=== PATIENT | female | born 1995 | race Caucasian/White ===

== ENCOUNTER 2018-06-12 18:57 | Emergency (ER) | payer MEDICAID ==
--- NOTE | 2018-06-12 19:19 | EDM.PDOC ---
ED HPI GENERAL MEDICAL PROBLEM - General Stated Complaint: POSSIBLE ALLERGIC REACTION Time Seen by Provider: 06/12/18 19:19 Source of Information: Reports: Patient, Family History Limitations: Reports: No Limitations - History of Present Illness INITIAL COMMENTS - FREE TEXT/NARRATIVE: The patient has had it a couple ferrets to her family. This was about a month ago. The patient is having a allergic reaction. This is periorbital. She is not sure if this is coming from the ferrets. No fever no chills. No difficulty breathing. She has been using a topical cream that is gluten-free. At any rate I did have the patient take a shot of Solu-Medrol 125 mg. Im. I also gave her some Pepcid. Benadryl would also be an option. I also gave her steroids. She is to return if she has any further issues did talk to her about the risk of a secondary staph infection. Patient does have a complicated medical history. She is accompanied by her mom and sister. She has also had sinus issues in the past. Onset: Gradual Duration: Getting Worse Location: Reports: Other (Face) Quality: Reports: Ache Severity: Moderate Improves with: Reports: None Associated Symptoms: Reports: Rash left eye/left side of face Pain Score (Numeric/FACES): 3 - Related Data Allergies Allergy/AdvReac Type Severity Reaction Status Date / Time bacitracin Allergy Rash Verified 06/12/18 20:21 [From Neosporin ([id number])] bacitracin zinc Allergy Rash Verified 06/12/18 20:21 [From Neosporin ([id number])] hydrocodone Allergy Itching Verified 06/12/18 20:21 neomycin sulfate Allergy Rash Verified 06/12/18 20:21 [From Neosporin ([id number])] polymyxin B Allergy Rash Verified 06/12/18 20:21 [From Neosporin ([id number])] Home Meds: Home Meds Norgestimate-Ethinyl Estradiol [Tri-Linyah] 1 tab PO DAILY 12/20/13 [History] Mirtazapine [Remeron] 15 mg PO BEDTIME 05/02/14 [History] predniSONE [Prednisone] 10 mg PO DAILY #20 tablet 06/12/18 [Rx] Past Medical History Neurological History: Reports: Other (See Below) Other Neuro History: left facial drooping from . - Past Surgical History HEENT Surgical History: Reports: Oral Surgery, Other (See Below) Social & Family History - Living Situation & Occupation Living situation: Reports: Single, with Family Occupation: Unemployed ED ROS GENERAL - Review of Systems Review Of Systems: ROS reveals no pertinent complaints other than HPI. ED EXAM, GENERAL - Physical Exam Exam: See Below Exam Limited By: No Limitations General Appearance: Alert, Mild Distress (The patient does have thickening of the eyelid on the left. Somewhat of a orange peel appearance. And also was some slight induration but no infection per se. Conjunctiva is otherwise clear. There is also some erythematous areas around her lips and around her left eye. No lymphadenopathy appreciated.) Throat/Mouth: Normal Inspection Head: Atraumatic Neck: Normal Inspection Respiratory/Chest: No Respiratory Distress, Lungs Clear, Normal Breath Sounds, No Accessory Muscle Use, Chest Non-Tender Cardiovascular: Normal Peripheral Pulses, Regular Rate, Rhythm, No Edema, No Gallop, No JVD, No Murmur, No Rub Course - Vital Signs Last Recorded V/S: Last Vital Signs Temp 36.9 C 06/12/18 19:10 Pulse 84 06/12/18 19:10 Resp 16 06/12/18 19:10 BP 149/88 H 06/12/18 19:10 Pulse Ox 100 06/12/18 19:10 - Orders/Labs/Meds Meds: Medications Discontinued Medications Generic Name Dose Route Start Last Admin Trade Name Freq PRN Reason Stop Dose Admin Famotidine 20 mg 06/12/18 19:41 06/12/18 19:44 Pepcid PO 06/12/18 19:42 20 mg ONETIME ONE Administration Methylprednisolone Sodium Succinate 125 mg 06/12/18 19:30 06/12/18 19:41 Solu-Medrol IM 06/12/18 19:31 125 mg ONETIME ONE Administration Prednisone 1 packet 06/12/18 19:38 06/12/18 19:44 Take Home: Prednisone 20 Mg, 2 Tab Pack PO 06/12/18 19:39 1 packet ONETIME ONE Administration Departure - Departure Time of Disposition: 20:24 Disposition: Home, Self-Care 01 Condition: Good Clinical Impression: Contact dermatitis Qualifiers: Contact dermatitis type: allergic Contact dermatitis trigger: unspecified trigger Qualified Code(s): L23.9 - Allergic contact dermatitis, unspecified cause - Discharge Information *PRESCRIPTION DRUG MONITORING PROGRAM REVIEWED*: Not Applicable Prescriptions: predniSONE [Prednisone] 10 mg PO DAILY #20 tablet Instructions: Allergic Conjunctivitis, Adult, [id number] Referrals: Ruba Peng PA-C [Primary Care Provider] - Forms: ED Department Discharge Additional Instructions: You received a dose of Solu-Medrol which is a steroid. This will hopefully help with the inflammation. I do want you to fill the prescription. Benadryl may help - 25-50 mg every 6 hours. This may cause sleepiness. Avoid rubbing the eyes. Pepcid would also help. Return if it seems to worsen. You may use a triple antibiotic ointment or another cream for the eye. Take the prednisone tomorrow. 1 tablet in the AM and 1 in the early PM. This may cause insomnia so try not to take this too late.
[2018-06-12] MEDS ORDERED: methylPREDNISolone Sodium Succinate 125 MG/2 ML SDV IM ONE (19:30)
[2018-06-12] MEDS ORDERED: Take Home: predniSONE 20 MG, 2 Tab Pack PO ONE (19:38)
[2018-06-12] MEDS ORDERED: Famotidine 20 MG Tab PO ONE (19:41)
== END 2018-06-12 19:54 | disposition home or self-care (01) ==
LOC: VM.ED 18:57
DX: L23.9 Allergic contact dermatitis, unspecified cause (principal); Z88.8 Allergy status to other drugs, medicaments and biological substances; Z88.5 Allergy status to narcotic agent; Z79.899 Other long term (current) drug therapy
CPT/HCPCS: 96372; 99283; A9270-GY; J2930

== ENCOUNTER 2022-05-08 08:05 | Day surgery (SDC) | payer MEDICAID ==
[2022-05-08] MEDS: Lactated Ringers 1,000 ML IV SCH (08:25)
[2022-05-08] MEDS ORDERED: fentaNYL 100 MCG/2 ML SDV ONE (09:20)
[2022-05-08] MEDS ORDERED: Propofol 200 MG/20 ML SDV ONE ×2 (09:20→11:33)
== END 2022-05-08 11:47 | disposition home or self-care (01) ==
LOC: VM.SDS 08:05
PROVIDERS: ATTEND Family Medicine
DX: Z12.11 Encounter for screening for malignant neoplasm of colon (principal); E66.9 Obesity, unspecified; F32.A Depression, unspecified; F41.9 Anxiety disorder, unspecified; G47.00 Insomnia, unspecified; Z98.890 Other specified postprocedural states; Z83.71 Family history of colonic polyps; Z87.19 Personal history of other diseases of the digestive system; Z79.899 Other long term (current) drug therapy; Z79.84 Long term (current) use of oral hypoglycemic drugs; Z87.891 Personal history of nicotine dependence; Z68.37 Body mass index [BMI] 37.0-37.9, adult; Z88.1 Allergy status to other antibiotic agents; Z88.5 Allergy status to narcotic agent
CPT/HCPCS: 45380; 81025; J2704; J3010; J7120; 00811

== ENCOUNTER 2023-05-10 11:39 | Emergency (ER) | payer MEDICAID ==
[2023-05-10] MEDS ORDERED: Sodium Chloride 0.9% 10 ML Syringe FLUSH PRN (11:58)
[2023-05-10] MEDS ORDERED: Lactated Ringers 1,000 ML IV ONE (11:59)
[2023-05-10] MEDS ORDERED: Ondansetron 4 MG/2 ML SDV IVPUSH ONE (11:59)
[2023-05-10] MEDS ORDERED: Morphine 4 MG/ML Syringe IVPUSH ONE (12:00)
[2023-05-10 12:05] LABS: BASOPHILS PERCENT AUTO 0.3 % (0.2-1.2); EOSINOPHILS ABSOLUTE AUTO 0.3 x10^3/uL (0.0-0.5); EOSINOPHILS PERCENT AUTO 2.5 % (0.0-4.0); HEMATOCRIT 42.9 % (33.0-47.0); HEMOGLOBIN 14.2 g/dL (12.0-16.0); IMMATURE GRAN ABSOLUTE AUTO 0.02 x10^3/uL (0.00-0.07); LYMPHOCYTES ABSOLUTE AUTO 2.1 x10^3/uL (1.0-4.8); LYMPHOCYTES PERCENT AUTO 18.7 % (25.0-50.0); MEAN CORPUSCULAR HEMOGLOBIN 30.4 pg (26.0-32.0); MEAN CORPUSCULAR HGB CONC 33.1 g/dL (32.0-36.0); MEAN CORPUSCULAR VOLUME 91.9 fL (78.0-93.0); MONOCYTES ABSOLUTE AUTO 0.7 x10^3/uL (0.0-0.8); MONOCYTES PERCENT AUTO 5.8 % (2.0-11.0); NEUTROPHILS ABSOLUTE AUTO 8.2 x10^3/uL (1.8-7.7); NEUTROPHILS PERCENT AUTO 72.5 % (50.0-80.0); PLATELET COUNT,PLT 321 x10^3/uL (130-400); RED BLOOD CELL COUNT 4.67 x10^6/uL (4.00-5.50); WHITE BLOOD CELL COUNT,WBC 11.3 x10^3/uL (4.0-10.0)
[2023-05-10 12:22] LABS: ALBUMIN 3.6 g/dL (3.4-5.0); ANION GAP 16.4 mmol/L (5-15); BILIRUBIN TOTAL 0.6 mg/dL (0.2-1.0); CALCIUM 8.4 mg/dL (8.5-10.1); CREATININE 0.8 mg/dL (0.55-1.02); EST CRCL DRUG DOSING (CG) 74.53 mL/min; POTASSIUM,K 3.4 mmol/L (3.5-5.1); PROTEIN TOTAL,TP 7.2 g/dL (6.4-8.2)
[2023-05-10 12:38] LABS: BILIRUBIN,URINE NEGATIVE (NEGATIVE); GLUCOSE,URINE NEGATIVE (NEGATIVE); KETONES,URINE NEGATIVE (NEGATIVE); LEUKOCYTE ESTERASE,URINE NEGATIVE (NEGATIVE); NITRITE,URINE NEGATIVE (NEGATIVE); OCCULT BLOOD,URINE LARGE (NEGATIVE); PROTEIN,URINE TRACE mg/dL (NEGATIVE); UROBILINOGEN,URINE 0.2 EU/dL (0.2)
[2023-05-10 12:45] LABS: APPEARANCE,URINE SLIGHTLY CLOUDY (CLEAR); BACTERIA,URINE OCCASIONAL /HPF (NOT SEEN); COLOR,URINE DARK YELLOW (YELLOW); MUCUS,URINE FEW /LPF (NOT SEEN); RBC,URINE 30-40 /HPF (NOT SEEN); SQUAMOUS EPITHELIAL CELLS,UR OCCASIONAL /HPF (NOT SEEN); WBC,URINE 0-5 /HPF (NOT SEEN)
[2023-05-10] MEDS ORDERED: Ketorolac 15 MG/ML SDV IVPUSH ONE (13:15)
[2023-05-10] MEDS ORDERED: Take Home: Acetaminophen/oxyCODONE 325-5 MG, 5 Tab Pack PO ONE (14:21)
[2023-05-10] MEDS ORDERED: Take Home: Ondansetron 4 MG Tab.DIS, 5 Tab Pack PO ONE (14:21)
[2023-05-10] MEDS ORDERED: Tamsulosin 0.4 MG Cap.ER PO ONE (14:22)
== END 2023-05-10 14:37 | disposition home or self-care (01) ==
LOC: VM.ED 11:39
DX: N13.2 Hydronephrosis with renal and ureteral calculous obstruction (principal); Z88.1 Allergy status to other antibiotic agents; Z88.5 Allergy status to narcotic agent
CPT/HCPCS: 74176; 80053; 81001; 81025; 85025; 96361; 96374; 96375; 99284; 99284-25; A9270-GY; J1885; J2270; J2405; J7120; Q0162